=== PATIENT | female | born 1955 | race Caucasian/White ===

== ENCOUNTER 2020-11-17 09:35 | Day surgery (SDC) | payer BC ==
[2020-11-16 11:34] VITALS: BMI 20.5
[~2020-11-17 09:35] MED LIST: LACTATED RINGERS 1,000 ML IV SCH; LIDOCAINE 1% (10MG/ML) FOR IV START INTRADERMA PRN
[2020-11-17 11:42] VITALS: TEMP 98.3
[2020-11-17] MEDS ORDERED: PROPOFOL 10 MG/ML 20 ML VIAL IV ONE (12:19)
--- NOTE | 2020-11-17 12:39 | P.PCN ---
Date of Procedure: 11/17/20 Procedure(s) Performed: BRIEF HISTORY: Patient is a 65-year-old pleasant white female scheduled for an elective colonoscopy as a part of evaluation of recent episode of acute infectious colitis in August 2020 for which she was treated with antibiotics. Since then she is been having intermittent constipation and has been taking MiraLAX daily. PROCEDURE PERFORMED: Colonoscopy with biopsy. PREOPERATIVE DIAGNOSIS: Lower abdominal pain and change in bowel habits. IV sedation per Anesthesia. PROCEDURE: After informed consent was obtained, the patient, was brought into the endoscopy unit. IV sedation was administered by Anesthesia under continuous monitoring. Digital rectal examination was normal. Initially the Olympus CF-160 flexible video colonoscope was then inserted in the rectum, gradually advanced into the cecum without any difficulty. Careful examination was performed as the scope was gradually being withdrawn. Ileocecal valve and the appendiceal orifice were visualized and appeared normal. Prep was excellent. Mucosa of the cecum, ascending colon, transverse colon, descending colon, sigmoid colon, appeared normal. There was evidence of active colitis involving the rectosigmoid colon at 70 from 18-20 cm from the anal verge with mucosal erythema and friability and biopsies were done from this area. The rectum appeared normal. Retroflexion was performed in the rectum and no lesions were seen. The patient tolerated the procedure well. IMPRESSION: Mild patchy colitis noted in the rectosigmoid colon extending from 18-20 cm from the anal verge with mucosal erythema and friability status post multiple biopsies Rest of the colon appeared normal RECOMMENDATIONS: Findings of this examination were discussed with the patient as well as a family. She was advised to follow with the biopsy results. She will continue with MiraLAX daily. repeat colonoscopy in 10 years.
[2020-11-17 12:51] VITALS: RESP 16
[2020-11-17 13:03] VITALS: BP 107/66; PULSE 64
== END 2020-11-17 13:15 | disposition home or self-care (01) ==
LOC: ORWHC2ENDO 09:35
PROVIDERS: ATTEND Internal Medicine Gastroenterology
DX: K51.30 Ulcerative (chronic) rectosigmoiditis without complications (principal); K59.00 Constipation, unspecified; E78.5 Hyperlipidemia, unspecified; K21.9 Gastro-esophageal reflux disease without esophagitis; Z79.899 Other long term (current) drug therapy
CPT/HCPCS: 88305; 45380; J2704

== ENCOUNTER 2022-04-04 07:56 | Observation (INO) | payer BC, MEDICARE ==
[2022-04-04 08:24] LABS: Basophils % (A) 1 %; Eosinophils # (A) 0.3 k/uL (0-0.7); Eosinophils % (A) 5 %; HCT 41.3 % (34.0-46.0); HGB 13.9 gm/dL (11.4-16.0); Lymphocytes # (A) 1.2 k/uL (1.0-4.8); Lymphocytes % (A) 22 %; MCH 31.5 pg (25.0-35.0); MCHC 33.6 g/dL (31.0-37.0); MCV 93.9 fL (80.0-100.0); Monocytes # (A) 0.4 k/uL (0-1.0); Monocytes % (A) 6 %; Neutrophils # (A) 3.6 k/uL (1.3-7.7); Neutrophils % (A) 64 %; Platelet Count 231 k/uL (150-450); RDW 14.3 % (11.5-15.5); WBC 5.6 k/uL (3.8-10.6)
--- NOTE | 2022-04-04 08:38 | XR ---
EXAMINATION TYPE: XR chest 2V DATE OF EXAM: 04/04/2022 COMPARISON: NONE HISTORY: Chest pain. TECHNIQUE: Frontal and lateral views of the chest are obtained. FINDINGS: There is no focal air space opacity, pleural effusion, or pneumothorax seen. The cardiac silhouette size is within normal limits. The osseous structures are intact. Overlying bra strap and EKG leads are seen. IMPRESSION: No acute cardiopulmonary process.
[2022-04-04 08:40] LABS: Calcium 9.1 mg/dL (8.4-10.2); Total Bilirubin 1.4 mg/dL (0.2-1.3)
--- NOTE | 2022-04-04 08:43 | ED ---
Chest Pain HPI - General Chief Complaint: Chest Pain Stated Complaint: chest pain Time Seen by Provider: 04/04/22 08:01 Source: patient, EMS, RN notes reviewed Mode of arrival: EMS Limitations: no limitations - History of Present Illness Initial Comments: is a 66-year-old female presents emergency department to complaint of chest pain. Patient states started around 1 AM. Patient states that it's centralized pain has progressed and radiates sharp to her back. Patient states that she has a history of hyperlipidemia denies any prior cardiac disease states that she's never had a cardiac workup. Patient states that she hasn't call cogent few days ago. Patient states resolved. She denies any recent traveling no leg pain or leg swelling no history DVT or PE. Patient was given aspirin, nitro by EMS she does have minimal improvement with nitro. - Related Data Home Medications Medication Instructions Recorded Confirmed Atorvastatin [Lipitor] 40 mg PO HS 11/16/20 11/17/20 Calcium Carbonate/Vitamin D3 1 each PO BID 11/16/20 11/17/20 [Caltrate 600 Plus D3 20 Mcg (800 Iu)] Celecoxib [CeleBREX] 200 mg PO DAILY PRN 11/16/20 11/16/20 Cholecalciferol [Vitamin D3 (25 50 mcg PO DAILY 11/16/20 11/17/20 Mcg = 1000 Iu)] Allergies Allergy/AdvReac Type Severity Reaction Status Date / Time No Known Allergies Allergy Verified 04/04/22 08:05 Review of Systems ROS Statement: Those systems with pertinent positive or pertinent negative responses have been documented in the HPI. ROS Other: All systems not noted in ROS Statement are negative. EKG Findings - EKG Comments: EKG Findings:: EKG interpreted by me sinus bradycardia rate of 53 DC 179/77 QT/QTC 486/468 - EKG Results: EKG: interpreted by PIERCED Past Medical History Past Medical History: Hyperlipidemia Additional Past Medical History / Comment(s): RECENT INPT AT [facility] FOR "INTRA-ABDOMINAL INFECTION" History of Any Multi-Drug Resistant Organisms: None Reported Past Surgical History: Back Surgery, Hysterectomy Additional Past Surgical History / Comment(s): SINUS SX. COLONOSCOPY/EGD Past Anesthesia/Blood Transfusion Reactions: Postoperative Nausea & Vomiting (PONV) Past Psychological History: No Psychological Hx Reported Smoking Status: Never smoker - Past Family History Father Family Medical History: Cancer General Exam Limitations: no limitations General appearance: alert, in no apparent distress Head exam: Present: atraumatic, normocephalic, normal inspection Eye exam: Present: normal appearance, PERRL, EOMI. Absent: scleral icterus, conjunctival injection, periorbital swelling ENT exam: Present: normal exam, normal oropharynx, mucous membranes moist Neck exam: Present: normal inspection, full ROM. Absent: tenderness, meningismus, lymphadenopathy Respiratory exam: Present: normal lung sounds bilaterally. Absent: respiratory distress, wheezes, rales, rhonchi, stridor Cardiovascular Exam: Present: regular rate, normal rhythm, normal heart sounds. Absent: systolic murmur, diastolic murmur, rubs, gallop, clicks GI/Abdominal exam: Present: soft, normal bowel sounds. Absent: distended, tenderness, guarding, rebound, rigid Neurological exam: Present: alert Skin exam: Present: warm, dry, intact, normal color. Absent: rash Course Vital Signs 04/04/22 08:01 Temperature 97.2 F L Pulse Rate 50 L Respiratory 18 Rate Blood Pressure 138/72 O2 Sat by Pulse 98 Oximetry Chest Pain MDM - MDM Was pt. sent in by a medical professional or institution? @ -no Did you speak to anyone other than the patient for history? @ -EMS prehospital care, vitals, information, meds that were provided Did you review nursing and triage notes? @ -agree and reviewed Were old charts reviewed? @ -no Differential Diagnosis? @ -Chest pain, pneumonia, PE,, anxiety, this this is not meant to be all- inclusive EKG interpreted by me (3pts min.)? @ -See above X-rays interpreted by me (1pt min.)? @ -Chest x-ray interpreted by me no acute process. CT interpreted by me (1pt min.)? @ -None U/S interpreted by me (1pt. min.)? @ -none What testing was considered but not performed? (CT, X-rays, U/S, labs)? Why? @ CT PE study to d-dimer was negative. What meds were considered but not given? Why? @ -morphine patient declined Did you discuss the management of the patient with other professionals? @ -Hospitalist Did you reconcile home meds? @ -yes Was smoking cessation discussed for >3mins.? @ -no Was critical care preformed (if so, how long)? @ -no Were there social determinants of health that impacted care today? How? (Homelessness, low income, unemployed, alcoholism, drug addiction, transportation, low edu. Level, literacy, decrease access to med. care, penitentiary, rehab)? @ -no Was there de-escalation of care discussed even if they declined? (Discuss DNR or withdrawal of care, Hospice)? @ -no What co-morbidities impacted this encounter? (DM, HTN, Smoking, COPD, CAD, Cancer, CVA, Hep., AIDS, mental health diagnosis, sleep apnea, morbid obesity)? @ -Hyperlipidemia Was patient admitted / discharged? @ -admitted Undiagnosed new problem with uncertain prognosis? @ -none Drug Therapy requiring intensive monitoring for toxicity (Heparin, Nitro, Insulin, Cardizem)? @ -no Were any procedures done? @ -no Diagnosis/symptom? @ -Chest pain Acute, or Chronic, or Acute on Chronic? @ -acute Uncomplicated (without systemic symptoms) or Complicated (systemic symptoms)? @ -uncomplicated Side effects of treatment? @ -none Exacerbation, Progression, or Severe Exacerbation] @ -no Poses a threat to life or bodily function? @ -no Disposition Clinical Impression: Chest pain Disposition: ADMITTED IP TO THIS [facility] Condition: Fair Referrals: Letha Rogers DO [Primary Care Provider] - 1-2 days Time of Disposition: 09:20
[2022-04-04 08:47] LABS: Partial Thromboplastin Time 26.8 sec (22.0-30.0); Prothrombin Time 10.5 sec (9.0-12.0)
[2022-04-04 08:52] LABS: Albumin 4.1 g/dL (3.5-5.0); Magnesium 2.1 mg/dL (1.6-2.3); Potassium 4.6 mmol/L (3.5-5.1); Total Protein 6.5 g/dL (6.3-8.2)
[2022-04-04] MEDS ORDERED: KETOROLAC 15 MG/ML 1 ML VIAL IVP STA (09:11)
[2022-04-04] MEDS ORDERED: NITROGLYCERIN SL TABS 0.4 MG TAB SUBLINGUAL PRN (09:24)
[2022-04-04] MEDS ORDERED: MAG HYDROX/AL HYDROX/SIMETH 30 ML, HYOSCYAMINE ELIXIR 10 ML, LIDOCAINE VISCOUS 2% 10 ML PO ONE ×3 (09:32)
--- NOTE | 2022-04-04 11:45 | P.CRDCN ---
History of Present Illness Consult date: 04/04/22 History of present illness: HISTORY OF PRESENT ILLNESS: This is a 66-year-old female with a past medical history significant for depression and hyperlipidemia. Patient does not follow a nib inspector. We have been asked to see the patient in consultation for chest pain. Patient examined at the bedside. Patient states a few days ago she began having pain on both sides of her abdomen/chest; more laterally. She denied any chest pain at that time. She states around 0100 this morning she began having chest pain. She states the pain was in the middle of her chest. She reports radiation in between her shoulder blades, more on the right side. She reports some right upper quadrant abdomen pain with palpation. She also states she was nauseous this morning and had a few episodes of vomiting. She reports feeling sweating and having mild SOB. She was given aspirin and nitro but she states she did not have improvement in her chest pain. She continues to report a squeezing sensation in the middle of her chest and rates it 6/10. She reports a weight loss of 20 lbs over the past 6 months and reports having no appetite. She reports having a fever a couple days ago of 100.8. She states she has not been around anyone who has been sick. * EKG reveals sinus bradycardia with no signs of acute ischemia * Chest xray negative for acute process * Laboratory data: WBC 5.6. Hemoglobin 13.9. Platelet count 231. D-dimer 0.36. Sodium 140. Potassium 4.6. BUN 21. Creatinine 0.81. Troponin negative 1. * Current home cardiac medications include Lipitor 40 mg at night * No previous echocardiogram available for review * Cardiac catheterization history: Patient denies REVIEW OF SYSTEMS: At the time of my exam: CONSTITUTIONAL: Denies fever or chills. HEENT: Denies blurred vision, vision changes, or eye pain. Denies hemoptysis CARDIOVASCULAR: Denies chest pain. Denies orthopnea. Denies PND. Denies palpitations RESPIRATORY: Denies shortness of breath. GASTROINTESTINAL: Denies abdominal pain. Denies nausea or vomiting. HEMATOLOGIC: Denies bleeding disorders. GENITOURINARY: Denies any blood in urine. SKIN: Denies pruitis. Denies rash. PHYSICAL EXAM: VITAL SIGNS: Reviewed. GENERAL: Well-developed in no acute distress. HEENT: Head is normocephalic. Pupils are equal, round. Sclerae anicteric. Mucous membranes of the mouth are moist. Neck supple. No JVD or thyromegaly LUNGS: Respirations even and unlabored. Lungs essentially clear to auscultation bilaterally. HEART: Regular rate and rhythm. S1 and S2 heard. ABDOMEN: Soft. Nondistended. Tenderness with palpation of right upper quadrant. EXTREMITIES: Normal range of motion. No clubbing or cyanosis. Peripheral pulses intact. No lower extremity edema NEUROLOGIC: Awake and alert. Oriented x 3. ASSESSMENT: Chest pain Right upper quadrant pain with right shoulder discomfort along with elevated bilirubin, r/o gallbladder etiology Hyperlipidemia Depression PLAN: Continue to trend troponins Obtain 2D echo to assess cardiac structure and function Recommend US gallbladder Possible stress test tomorrow pending results of troponins, echo, and US gallbladder. NPO at midnight. Further recommendations pending patient course Nurse practitioner note has been reviewed by physician. Signing provider agrees with the documented findings, assessment, and plan of care. Past Medical History Past Medical History: Hyperlipidemia Additional Past Medical History / Comment(s): RECENT INPT AT [facility] FOR "INTRA-ABDOMINAL INFECTION" History of Any Multi-Drug Resistant Organisms: None Reported Past Surgical History: Back Surgery, Hysterectomy Additional Past Surgical History / Comment(s): SINUS SX. COLONOSCOPY/EGD Past Anesthesia/Blood Transfusion Reactions: Postoperative Nausea & Vomiting (PONV) Past Psychological History: No Psychological Hx Reported Smoking Status: Never smoker - Past Family History Father Family Medical History: Cancer Medications and Allergies Home Medications Medication Instructions Recorded Confirmed Type Atorvastatin [Lipitor] 40 mg PO HS 11/16/20 04/04/22 History Calcium Carbonate/Vitamin D3 1 tab PO BID 11/16/20 04/04/22 History [Caltrate 600 Plus D3 20 Mcg (800 Iu)] Celecoxib [CeleBREX] 200 mg PO DAILY 11/16/20 04/04/22 History Cholecalciferol [Vitamin D3 (25 50 mcg PO DAILY 11/16/20 04/04/22 History Mcg = 1000 Iu)] Sertraline [Zoloft] 50 mg PO DAILY 04/04/22 04/04/22 History Zolpidem Tartrate [Ambien] 10 mg PO HS 04/04/22 04/04/22 History Allergies Allergy/AdvReac Type Severity Reaction Status Date / Time No Known Allergies Allergy Verified 04/04/22 10:04 Physical Exam Vitals: Vital Signs Temp Pulse Resp BP Pulse Ox 04/04/22 08:01 97.2 F L 50 L 18 138/72 98 Intake and Output 04/03/22 04/04/22 04/04/22 22:59 06:59 14:59 Other: Weight 52.163 kg Results 04/04/22 08:13 04/04/22 08:13 Cardiac Enzymes 04/04/22 04/04/22 Range/Units 08:13 08:13 AST 41 H (14-36) U/L Troponin I <0.012 (0.000-0.034) ng/mL Coagulation 04/04/22 Range/Units 08:13 PT 10.5 (9.0-12.0) sec APTT 26.8 (22.0-30.0) sec CBC 04/04/22 Range/Units 08:13 WBC 5.6 (3.8-10.6) k/uL RBC 4.40 (3.80-5.40) m/uL Hgb 13.9 (11.4-16.0) gm/dL Hct 41.3 (34.0-46.0) % Plt Count 231 (150-450) k/uL Comprehensive Metabolic Panel 04/04/22 Range/Units 08:13 Sodium 140 (137-145) mmol/L Potassium 4.6 (3.5-5.1) mmol/L Chloride 110 H (98-107) mmol/L Carbon Dioxide 24 (22-30) mmol/L BUN 21 H (7-17) mg/dL Creatinine 0.81 (0.52-1.04) mg/dL Glucose 110 H (74-99) mg/dL Calcium 9.1 (8.4-10.2) mg/dL AST 41 H (14-36) U/L ALT 19 (4-34) U/L Alkaline Phosphatase 108 (38-126) U/L Total Protein 6.5 (6.3-8.2) g/dL Albumin 4.1 (3.5-5.0) g/dL Current Medications Generic Name Dose Route Start Last Admin Trade Name Freq PRN Reason Stop Dose Admin Aspirin 325 mg 04/05/22 09:00 Aspirin 325 Mg Tab PO DAILY ADELIA Atorvastatin Calcium 40 mg 04/04/22 21:00 Atorvastatin 40 Mg Tab PO HS ADELIA Nitroglycerin 0.4 mg 04/04/22 09:24 Nitroglycerin Sl Tabs 0.4 Mg Tab SUBLINGUAL Q5M PRN Chest Pain Intake and Output 04/03/22 04/04/22 04/04/22 22:59 06:59 14:59 Other: Weight 52.163 kg Patient Weight 04/05/22 06:59 Weight 52.163 kg 04/04/22 08:13 04/04/22 08:13
--- NOTE | 2022-04-04 12:45 | US ---
EXAMINATION TYPE: US gallbladder DATE OF EXAM: 04/04/2022 COMPARISON: NONE CLINICAL HISTORY: r/o acute cholecystitis. TECHNIQUE: Multiple sonographic images of the right upper quadrant are obtained. FINDINGS: EXAM MEASUREMENTS: Liver Length: 0.1 cm Gallbladder Wall: 0.2 cm CBD: 0.7 cm Right Kidney: 9.0 x 4.9 x 4.0 cm WOOL HAT FLANGER NOTES: Severe overlying bowel gas, technically difficult limited study. Pancreas: Partially obscured by bowel gas, portions visualized wnl Liver: wnl, limited visualization Gallbladder: neck shows probable stone difficult to visualize Evidence for sonographic Lazaro's sign: Not reported by order processing clerk. CBD: dilated Right Kidney: wnl as seen, limited visualization IMPRESSION: Cholelithiasis without evidence for acute cholecystitis.
--- NOTE | 2022-04-04 19:44 | P.HPIM ---
History of Present Illness H&P Date: 04/04/22 History of Presenting Illness: Patient is a very pleasant 66-year-old female with a past medical history of hyperlipidemia. She presented to the emergency department with a chief complaint of chest pain. Patient described this pain as a tightness to midsternal chest radiating into her back between her shoulder blades. Patient reports her pain began around 1:00 in the morning and was accompanied by severe nausea followed by vomiting and diaphoresis. She denies having any recent fevers or chills and denies feeling any weakness, lightheadedness, palpitations, shortness of breath, or experiencing any numbness/tingling/weakness in her extremities. She underwent full evaluation in the emergency department. Upon arrival to our facility vital signs were stable with blood pressure 138/72, heart rate 50, respiratory rate 18, temp 97.2F, and SpO2 of 98% on room air. Patient denies history of bradycardia in the past. EKG was completed revealing sinus bradycardia at 53 bpm with T-wave inversion in aVL, V1, and V2. Chest x- ray was completed and negative for acute cardiopulmonary process. CBC unremarkable. Coagulation profile including d-dimer also unremarkable with d- dimer of 0.36. CMP revealing hyperchloremia with chloride of 110, prerenal azotemia with BUN of 21, and slightly elevated total bili of 1.4 and AST of 41. Troponin was negative at less than 0.012. Discussed diagnostic testing and results along with patient's physical exam findings with the ED physician and patient was accepted for admission under our services with consultation to cardiology. Review of systems: Pertinent positives and negatives as discussed in HPI, a complete review of s ystems was performed and all other systems are negative. Physical exam: Vital signs reviewed and stable. General: Nontoxic, no distress and appears stated age. Derm: Skin warm and dry, normal coloration for ethnicity. Head: Atraumatic, normocephalic and symmetric. Eyes: EOMs intact, no lid lag, and anicteric sclera Mouth: no lip lesions, mucus membranes moist Cardiovascular: regular rate and rhythm with normal S1S2, no murmur, positive posterior tibial pulses bilaterally, and cap refill < 2 seconds. Lungs: Respirations even, regular, and unlabored on room air. Lungs CTA bilaterally, no rhonchi, no rales, no wheezing, and no accessory muscle usage. Abdominal: soft, nontender to palpation, no guarding, no appreciable organomegaly Ext: ROM intact. No gross muscle atrophy, no edema, no contractures Neuro: Speech clear, face symmetrical and CN II-XII grossly intact with no noted focal neuro deficits Psych: Alert and oriented to person, place, time, and situation. Appropriate and pleasant affect. Assessment and Plan of Care: Chest pain, rule out acute coronary event Bradycardia Hyperlipidemia Slightly elevated liver enzymes with total bili of 1.4 and AST of 41 -Cardiology consult, appreciate further recommendations -Telemetry monitoring -Trend troponins -Cardiac diet, NPO at midnight -Aspirin and atorvastatin. We will hold off on starting metoprolol as patient bradycardic. -Lipid profile with a.m. labs. -Echocardiogram -Secondary to slightly elevated liver enzymes, GI cocktail to be administered 1 dose and order placed for a gallbladder ultrasound at this time. The patient is admitted with an anticipated less than 2 midnight stay for evaluation of chest pain CODE STATUS: Full code DVT prophylaxis: Heparin Discussed with: Patient and RN Anticipated discharge date: Tomorrow morning Anticipated discharge place: Home A total of 43 minutes was spent on the care of this complex patient more than 50% of the time was spent in counseling and care coordination. I reviewed the documentation as provided by the JUNAID above, who is the original author of this note. I agree with the documented assessment and plan, with the following changes: none Past Medical History Past Medical History: Hyperlipidemia Additional Past Medical History / Comment(s): RECENT INPT AT [facility] FOR "INTRA-ABDOMINAL INFECTION" History of Any Multi-Drug Resistant Organisms: None Reported Past Surgical History: Back Surgery, Hysterectomy Additional Past Surgical History / Comment(s): SINUS SX. COLONOSCOPY/EGD Past Anesthesia/Blood Transfusion Reactions: Postoperative Nausea & Vomiting (PONV) Past Psychological History: No Psychological Hx Reported Smoking Status: Never smoker - Past Family History Father Family Medical History: Cancer Medications and Allergies Home Medications Medication Instructions Recorded Confirmed Type Atorvastatin [Lipitor] 40 mg PO HS 11/16/20 04/04/22 History Calcium Carbonate/Vitamin D3 1 tab PO BID 11/16/20 04/04/22 History [Caltrate 600 Plus D3 20 Mcg (800 Iu)] Celecoxib [CeleBREX] 200 mg PO DAILY 11/16/20 04/04/22 History Cholecalciferol [Vitamin D3 (25 50 mcg PO DAILY 11/16/20 04/04/22 History Mcg = 1000 Iu)] Sertraline [Zoloft] 50 mg PO DAILY 04/04/22 04/04/22 History Zolpidem Tartrate [Ambien] 10 mg PO HS 04/04/22 04/04/22 History Allergies Allergy/AdvReac Type Severity Reaction Status Date / Time No Known Allergies Allergy Verified 04/04/22 10:04 Physical Exam Vitals: Vital Signs Temp Pulse Resp BP Pulse Ox 04/04/22 08:01 97.2 F L 50 L 18 138/72 98 Intake and Output 04/03/22 04/04/22 04/04/22 22:59 06:59 14:59 Other: Weight 52.163 kg Results CBC & Chem 7: 04/05/22 05:22 04/05/22 05:22 Labs: Abnormal Lab Results - Last 24 Hours (Table) 04/04/22 Range/Units 08:13 Chloride 110 H (98-107) mmol/L BUN 21 H (7-17) mg/dL Glucose 110 H (74-99) mg/dL Total Bilirubin 1.4 H (0.2-1.3) mg/dL AST 41 H (14-36) U/L
[2022-04-04] MEDS: HEPARIN SODIUM,PORCINE/PF 5,000 UNIT/0.5 ML SYRINGE SQ SCH (20:47)
[2022-04-04] MEDS ORDERED: ZOLPIDEM 5 MG TAB PO SCH (21:00)
[2022-04-04] MEDS ORDERED: ATORVASTATIN 40 MG TAB PO SCH (21:00)
[2022-04-05] MEDS: HEPARIN SODIUM,PORCINE/PF 5,000 UNIT/0.5 ML SYRINGE SQ SCH (04:19)
[2022-04-05 08:36] LABS: HCT 38.5 % (37.2-46.3); HGB 12.7 g/dL (12.0-15.0); MCH 30.8 pg (27.0-32.0); MCV 93.4 fL (80.0-97.0); Mean Platelet Volume 10.1 fL (9.5-12.2); NRBC Per 100 WBC 0 /100 WBCS (0.0-0.0); Platelet Count 205 X 10*3/uL (140-440); RBC 4.12 X 10*6/uL (4.10-5.20); RDW 14.6 % (11.5-14.5); WBC 5.33 X 10*3/uL (4.50-10.00)
[2022-04-05 08:51] LABS: ALT 16 U/L (8-44); AST 24 U/L (13-35); African American GFR (CKD) 90.3 (60.0-200.0); Albumin 3.9 g/dL (3.8-4.9); Alkaline Phosphatase 73 U/L (41-126); BUN/Creat Ratio 22.75 Ratio (12.00-20.00); Blood Urea Nitrogen 18.2 mg/dL (9.0-27.0); Calcium 8.6 mg/dL (8.7-10.3); Carbon Dioxide 26.7 mmol/L (20.0-27.5); Chloride 107 mmol/L (96-109); Chol/HDL Ratio 1.93 Ratio; Globulin 1.5 g/dL (1.6-3.3); Glucose 95 mg/dL (70-110); LDL Cholesterol,Calculated 49.1 mg/dL (0.0-131.0); Non-African American GFR(CKD) 77.9 (60.0-200.0); Potassium 4.1 mmol/L (3.5-5.5); Sodium 140 mmol/L (135-145); Total Protein 5.4 g/dL (6.2-8.2); VLDL Calculation 15.98 mg/dL (5.00-40.00)
[2022-04-05 08:57] VITALS: BP 116/65; PULSE 57; RESP 16; TEMP 98.2
[2022-04-05] MEDS ORDERED: ASPIRIN 325 MG TAB PO SCH (09:00)
[2022-04-05] MEDS ORDERED: ASPIRIN 81 MG PO SCH (09:00)
[2022-04-05] MEDS ORDERED: SERTRALINE 50 MG TAB PO SCH (09:00)
--- NOTE | 2022-04-05 09:49 | CA ---
Transthoracic Echo Report Name: Ashley Pope Age: 66 Gender: F : 1955 Exam Date: 04/04/2022 14:29 Exam Location: [facility] Ht (in): 64 Wt (lb): 115 Ordering Physician: Rk Van Attending/Referring Phys: [id number], Rehan Presser Cotton Ginning Alaina Pena RDCS Procedure CPT: Indications: Chest Pain Cardiac Hx: Technical Quality: Fair Contrast 1: Total Dose (mL): Contrast 2: Total Dose (mL): MEASUREMENTS (Male / Female) Normal Values 2D ECHO LV Diastolic Diameter PLAX 4.3 cm 4.2 - 5.9 / 3.9 - 5.3 cm LV Systolic Diameter PLAX 2.8 cm IVS Diastolic Thickness 0.8 cm 0.6 - 1.0 / 0.6 - 0.9 cm LVPW Diastolic Thickness 0.9 cm 0.6 - 1.0 / 0.6 - 0.9 cm LV Relative Wall Thickness 0.4 RV Internal Dim ED PLAX 3.2 cm M-MODE Aortic Root Diameter MM 3.0 cm LA Systolic Diameter MM 3.6 cm LA Ao Ratio MM 1.2 AV Cusp Separation MM 1.7 cm DOPPLER AV Peak Velocity 98.7 cm/s AV Peak Gradient 3.9 mmHg LVOT Peak Velocity 75.2 cm/s LVOT Peak Gradient 2.3 mmHg MV Area PHT 2.3 cm??? Mitral E Point Velocity 58.9 cm/s Mitral A Point Velocity 97.9 cm/s Mitral E to A Ratio 0.6 MV Deceleration Time 332.7 ms TR Peak Velocity 231.5 cm/s TR Peak Gradient 21.4 mmHg Right Ventricular Systolic Press 25.6 mmHg FINDINGS Left Ventricle Normal Left ventricular size, wall thickness, systolic function with no obvious regional wall motion abnormalities. Normal Left ventricular diastolic filling pattern. Left ventricular ejection fraction is estimated at 55-60 %. Right Ventricle Normal right ventricular size and function. Right ventricular systolic pressure within normal limits. Right Atrium Normal right atrial size. Left Atrium Normal left atrial size. Mitral Valve Structurally normal mitral valve. Trace mitral regurgitation. Aortic Valve Trileaflet aortic valve. No aortic valve stenosis or regurgitation. Tricuspid Valve Structurally normal tricuspid valve. Mild tricuspid regurgitation. Pulmonic Valve Trace pulmonic regurgitation. Pericardium No pericardial effusion. Aorta Normal size aortic root and proximal ascending aorta. CONCLUSIONS Left ventricular ejection fraction 55-60% Normal left ventricular thickness Trace mitral regurgitation Mild tricuspid regurgitation No pericardial effusion Previewed by: Dr. Fernando Dowling DO (Electronically Signed) Final Date: 05 April 2022 09:49
--- NOTE | 2022-04-05 09:58 | P.PN ---
Subjective Progress Note Date: 04/05/22 HISTORY OF PRESENT ILLNESS: This is a 66-year-old female with a past medical history significant for depression and hyperlipidemia. 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 We have been asked to see the patient in consultation for chest pain. Patient examined at the bedside. Patient states a few days ago she began having pain on both sides of her abdomen/chest; more laterally. She denied any chest pain at that time. She states around 0100 this morning she began having chest pain. She states the pain was in the middle of her chest. She reports radiation in between her shoulder blades, more on the right side. She reports some right upper quadrant abdomen pain with palpation. She also states she was nauseous this morning and had a few episodes of vomiting. She reports feeling sweating and having mild SOB. She was given aspirin and nitro but she states she did not have improvement in her chest pain. She continues to report a squeezing sensation in the middle of her chest and rates it 6/10. She reports a weight loss of 20 lbs over the past 6 months and reports having no appetite. She reports having a fever a couple days ago of 100.8. She states she has not been around anyone who has been sick. * EKG reveals sinus bradycardia with no signs of acute ischemia * Chest xray negative for acute process * Laboratory data: WBC 5.6. Hemoglobin 13.9. Platelet count 231. D-dimer 0.36. Sodium 140. Potassium 4.6. BUN 21. Creatinine 0.81. Troponin negative 1. * Current home cardiac medications include Lipitor 40 mg at night * No previous echocardiogram available for review * Cardiac catheterization history: Patient denies 04/05/2022 Patient examined this morning at the bedside. Patient denies any further episodes of chest pain or pressure. She reports epigastric tenderness. She reports nausea but no vomiting. Tachycardia gram completed revealing ejection fraction 55-60%, trace MR, and mild TR. Gallbladder US reveals cholelithiasis with dilated common bile duct but no evidence of acute cholecystitis. PHYSICAL EXAM: VITAL SIGNS: Reviewed. GENERAL: Well-developed in no acute distress. HEENT: Head is normocephalic. Pupils are equal, round. Sclerae anicteric. Mucous membranes of the mouth are moist. Neck supple. No JVD or thyromegaly LUNGS: Respirations even and unlabored. Lungs essentially clear to auscultation bilaterally. HEART: Regular rate and rhythm. S1 and S2 heard. ABDOMEN: Soft. Nondistended. Tenderness with palpation of right upper quadrant. EXTREMITIES: Normal range of motion. No clubbing or cyanosis. Peripheral pulses intact. No lower extremity edema NEUROLOGIC: Awake and alert. Oriented x 3. ASSESSMENT: Chest pain, troponins negative 3 Right upper quadrant pain with right shoulder discomfort along with elevated bilirubin, r/o gallbladder etiology Hyperlipidemia Depression PLAN: 2-D obtained and reviewed Acute coronary event has been ruled out. Patient to undergo stress echocardiogram today. If negative she may be discharged home from a cardiac standpoint. Nurse practitioner note has been reviewed by physician. Signing provider agrees with the documented findings, assessment, and plan of care. Objective - Vital Signs Vital signs: Vital Signs Temp 98.2 F 04/05/22 07:00 Pulse 57 L 04/05/22 08:00 Resp 16 04/05/22 08:00 BP 116/65 04/05/22 07:00 Pulse Ox 99 04/05/22 07:00 FiO2 Intake & Output 04/04/22 04/05/22 04/05/22 18:59 06:59 18:59 Weight 52.163 kg Other: Voiding Method Toilet Toilet # Voids 1 1 - Labs CBC & Chem 7: 04/05/22 05:22 04/05/22 05:22 Labs: Abnormal Lab Results - Last 24 Hours (Table) 04/05/22 04/05/22 Range/Units 05:22 05:22 RDW 14.6 H (11.5-14.5) % Anion Gap 6.30 L (10.00-18.00) mmol/L BUN/Creatinine Ratio 22.75 H (12.00-20.00) Ratio Calcium 8.6 L (8.7-10.3) mg/dL Total Protein 5.4 L (6.2-8.2) g/dL Globulin 1.5 L (1.6-3.3) g/dL HDL Cholesterol 69.90 H (40.00-60.00) mg/dL
--- NOTE | 2022-04-05 10:53 | CA ---
Stress Echo Report Ashley Pope Age: 66 Gender: F : 1955 Exam Date: 04/05/2022 09:29 Exam Location: [facility] Ht (in): 64 Wt (lb): 115 Ordering Physician: Lucy Landeros Referring Physician: [id number] Injection [employer] Tooling Technician: Pop Leiva Technologist Procedure CPT: Indication: CP ICD-9 Codes: Rhythm: Patient History: CHEST PAIN, DIFFICULTY IN BREATHING, ELEVATED CHOLESTEROL LEVELS, FAMILY HX OF HEART DISEASE Cardiac Medications: Medications in past 24 hours: Contrast: Stress Results Protocol: Del Total dose(mL): Exercise Duration (min:sec): Max ST Depression (mm): Angina Score: Vaughn Score: METS: 9.7 Resting HR: 70 Resting BP: 125 / 76 Peak HR: 144 Peak BP: 166 / 83 Max Predicted HR: 156 92 % Max Predicted HR Target HR: 133 Double Product: 60909 Stress Summary: BP Response: Reason for Termination: Cardiac Symptoms: NO SYMPTOMS ECG Analysis Resting ECG: Stress ECG: Arrhythmia: Echo Analysis Resting Echo: Peak Echo Analysis: MEASUREMENTS (Male/Female) Normal Values CONCLUSIONS Patient underwent exercise stress echo with a Del protocol treadmill stress test. Patient exercised into Stage 3 for a total of 8 minutes 1 second reaching a total of 9.7 METS. Patient's maximum heart rate was 144 which represented 92 % age- predicted maximum heart rate. Stress EKG portion: At baseline patient's EKG showed normal sinus rhythm, normal axis, no significant ST or T wave abnormalities. At peak exercise, EKG showed no significant change from baseline. Stress echo portion: 2-D echocardiogram was performed in the parasternal long, personal short, apical 2 and apical four-chamber views at rest, peak exercise and in recovery. At baseline, echocardiogram showed left ventricular ejection fraction the 55% without wall motion abnormalities. With peak exercise, echocardiogram shows improvement in left ventricular ejection fraction, increase contractility, decrease in left ventricular end systolic dimension without wall motion abnormalities consistent with a normal response to exercise. Conclusions: 1. Normal EKG and echo response to exercise without evidence of inducible ischemia. 2. Fair exercise capacity. Dr. Fernando Dowling DO (Electronically Signed) Final Date: 05 April 2022 10:52
--- NOTE | 2022-04-05 13:59 | P.DS ---
Providers Date of admission: 04/04/22 09:35 Expected date of discharge: 04/05/22 Attending physician: Lois Abernathy DO Primary care physician: Letha Rogers Hospital Course: Discharge Diagnosis: Chest pain Sinus bradycardia Hyperlipidemia Mild transaminitis Cholelithiasis Hospital Course: Patient seen and examined at bedside.66-year-old female with a past medical history of hyperlipidemia. She presented to the emergency department with a chief complaint of chest pain. Patient described this pain as a tightness to midsternal chest radiating into her back between her shoulder blades. Patient reports her pain began around 1:00 in the morning and was accompanied by severe nausea followed by vomiting and diaphoresis. She denies having any recent fevers or chills and denies feeling any weakness, lightheadedness, palpitations, shortness of breath, or experiencing any numbness/tingling/weakness in her extremities. She underwent full evaluation in the emergency department. Upon arrival to our facility vital signs were stable with blood pressure 138/72, heart rate 50, respiratory rate 18, temp 97.2F, and SpO2 of 98% on room air. Patient denies history of bradycardia in the past. EKG was completed revealing sinus bradycardia at 53 bpm with T-wave inversion in aVL, V1, and V2. Chest x- ray was completed and negative for acute cardiopulmonary process. CBC unremarkable. Coagulation profile including d-dimer also unremarkable with d- dimer of 0.36. CMP revealing hyperchloremia with chloride of 110, prerenal azotemia with BUN of 21, and slightly elevated total bili of 1.4 and AST of 41. Troponin was negative at less than 0.012. Cardiology consulted. Echo showed LV EF 55-60%, trace MR and mild TR. ACS ruled out. Stress echo was negative. Right upper quadrant ultrasound showed cholelithiasis without evidence of acute cholecystitis. Vital signs reviewed and stable. General: nontoxic, no distress, appears at stated age Derm: warm, dry Head: atraumatic, normocephalic, symmetric Eyes: EOMI, no lid lag, anicteric sclera Mouth: no lip lesion, mucus membranes moist Cardiovascular: S1S2 reg, no murmur Lungs: CTA bilateral, no rhonchi, no rales , no accessory muscle use Abdominal: soft, nontender to palpation, no guarding, no appreciable organomegaly Ext: no gross muscle atrophy, no edema, no contractures Neuro: CN II-XI grossly intact, no focal neuro deficits Psych: Alert, oriented, appropriate affect A total of 33 minutes of time were spent preparing this complex discharge summary. Patient was discharged on 04/05/22 at 11:16. Patient Condition at Discharge: Stable Plan - Discharge Summary New Discharge Prescriptions: Continue Celecoxib [CeleBREX] 200 mg PO DAILY Calcium Carbonate/Vitamin D3 [Caltrate 600 Plus D3 20 Mcg (800 Iu)] 1 tab PO BID Sertraline [Zoloft] 50 mg PO DAILY Cholecalciferol [Vitamin D3 (25 Mcg = 1000 Iu)] 50 mcg PO DAILY Atorvastatin [Lipitor] 40 mg PO HS Zolpidem Tartrate [Ambien] 10 mg PO HS Discharge Medication List Atorvastatin [Lipitor] 40 mg PO HS 11/16/20 [History] Calcium Carbonate/Vitamin D3 [Caltrate 600 Plus D3 20 Mcg (800 Iu)] 1 tab PO BID 11/16/20 [History] Celecoxib [CeleBREX] 200 mg PO DAILY 11/16/20 [History] Cholecalciferol [Vitamin D3 (25 Mcg = 1000 Iu)] 50 mcg PO DAILY 11/16/20 [History] Sertraline [Zoloft] 50 mg PO DAILY 04/04/22 [History] Zolpidem Tartrate [Ambien] 10 mg PO HS 04/04/22 [History] Follow up Appointment(s)/Referral(s): Letha Rogers DO [Primary Care Provider] - 1-2 days Patient Instructions/Handouts: Chest Pain (DC), Noncardiac Chest Pain (DC) Activity/Diet/Wound Care/Special Instructions: Please see your PCP in 1-2 days. Discharge Disposition: HOME SELF-CARE
== END 2022-04-05 13:12 | disposition home or self-care (01) ==
LOC: EC 07:56 → 6NMEDSUR 09:35
PROVIDERS: ADMIT Internal Medicine; ATTEND Internal Medicine
DX: R07.9 Chest pain, unspecified (principal); R00.1 Bradycardia, unspecified; K80.20 Calculus of gallbladder without cholecystitis without obstruction; E78.5 Hyperlipidemia, unspecified; R74.01 Elevation of levels of liver transaminase levels; F32.A Depression, unspecified; Z79.899 Other long term (current) drug therapy; Z79.1 Long term (current) use of non-steroidal anti-inflammatories (NSAID)
CPT/HCPCS: 96372; 96374; 99285; 36415; 93005; 93306; 93351; 85379; 80061; 80053 ×2; 83735; 84484; 85025; 85027; 85610; 85730; 71046; 76705; G0378 ×2; J1885; J1644

== ENCOUNTER → 2022-08-02 | Outpatient (CLI) | payer MEDICARE ==
--- NOTE | 2022-08-02 18:43 | BD ---
EXAMINATION TYPE: Axial Bone Density DATE OF EXAM: 08/02/2022 CLINICAL HISTORY: 67 years old Female. ICD-10 CODE: M81.0 AGE RELATED OSTEOPOROSIS Height: 5 ft 4in Weight: 127 FRAX RISK QUESTIONS: Alcohol (3 or more units per day): no Family History (Parent hip fracture): no Glucocorticoids (More than 3mos): no (Ex: prednisone, prednisolone, methylprednisolone, dexamethasone, and hydrocortisone). History of Fracture in Adulthood: yes Secondary Osteoporosis: 1. Type 1 Diabetes: no 2. Hyperthyroidism: no 3. Menopause before 45: no 4. Malnutrition: no 5. Chronic liver disease: no Rheumatoid Arthritis: no Current Tobacco Use: no RISK FACTORS HISTORY OF: Surgery to Spine/Hip(right/left)/Wrist (right/left): lumbar surg x 2 When: 1997 1998 Family History of Osteoporosis: no Active: yes Diet low in dairy products/other sources of calcium: no Postmenopausal woman: yes Take estrogen and/or progesterone medications: no Lost more than 2 inches in height since high school: no Frequent falls: no Poor Health: good Hyperparathyroidism: no Adrenal Insufficiency: no MEDICATIONS: Osteoporosis Medications: yes Which medication: evinity How Long: one year Additional Medications: evinity inj once a month, Atorvastatin, prilosec, celebrex Additional History: EXAM MEASUREMENTS: Bone mineral densitometry was performed using the Yodo1 System. Bone mineral density as measured about the Lumbar spine is: ----- L1-L4(G/cm2): 1.207 T Score Values are as follows: ----- L1: 0.4 ----- L2: 0.4 ----- L3: 0.3 ----- L4: -0.3 ----- L1-L4: 0.2 Z Score Values are as follows: ----- L1: 2.3 ----- L2: 2.2 ----- L3: 2.2 ----- L4: 1.6 ----- L1-L4: 2.1 baseline Bone mineral density about the R hip (g/cm2): 0.665 Bone mineral density about the L hip (g/cm2): 0.654 T Score values are as follows: -----R Neck: -2.7 -----L Neck: -2.8 -----R Total: -2.2 -----L Total: -2.4 Z Score values are as follows: -----R Neck: -1.1 -----L Neck: -1.1 -----R Total: -0.8 -----L Total: -1.1 baseline FRAX%s: The graph provided illustrates a 22.3 % chance for a major osteoporotic fx and a 6.0 % chance for the hips probability for fx in 10 years time. IMPRESSION: Osteoporosis (T Score less than -2.5). There is increased fracture risk and therapy is usually indicated based on age. Re-Screen 1-2 years. NOTE: T-SCORE=SD OF THE YOUNG ADULT MEAN.
== END | disposition home or self-care (01) ==
LOC: RADBDWWP 10:54
PROVIDERS: ATTEND Internal Medicine Endocrinology, Diabetes & Metabolism
DX: M81.0 Age-related osteoporosis without current pathological fracture (principal)
CPT/HCPCS: 77080

== ENCOUNTER → 2024-08-07 | Outpatient (CLI) | payer MEDICARE ==
--- NOTE | 2024-08-07 07:44 | BD ---
EXAMINATION TYPE: Axial Bone Density DATE OF EXAM: 08/07/2024 CLINICAL HISTORY: 69 years old Female. ICD-10 CODE: M81.0 AGE-RELATED OSTEOPOROSIS W/O CURRENT PATHO LO , Additional History: Height: 64" Weight: 137lbs FRAX RISK QUESTIONS: Alcohol (3 or more units per day): No Family History (Parent hip fracture): No Glucocorticoids (More than 3mos): No (Ex: prednisone, prednisolone, methylprednisolone, dexamethasone, and hydrocortisone). History of Fracture in Adulthood: Yes Secondary Osteoporosis: 1. Type 1 Diabetes: No 2. Hyperthyroidism: No 3. Menopause before 45: Yes 4. Malnutrition: No 5. Chronic liver disease: No Rheumatoid Arthritis: No Current Tobacco Use: No RISK FACTORS HISTORY OF: Hip Fracture (Right/Left): No Spine Fracture: No History of Wrist Fracture: No Surgery to Spine/Hip(right/left)/Wrist (right/left): Yes, lumbar laminectomy X2 When: Last sx 1998 MEDICATIONS: Thyroid Medications:No Osteoporosis Medications: Yes Which medication: Reclast Injections How Long: Started last year, 1 injection EXAM MEASUREMENTS: Bone mineral densitometry was performed using the Phrazit System. Bone mineral density as measured about the Lumbar spine is: ----- L1-L4(G/cm2): 1.242 T Score Values are as follows: ----- L1: 0.3 ----- L2: 0.3 ----- L3: 1.3 ----- L4: 0.1 ----- L1-L4: 0.5 Z Score Values are as follows: ----- L1: 2.0 ----- L2: 2.0 ----- L3: 3.0 ----- L4: 1.9 ----- L1-L4: 2.2 Bone mineral density has: increased 4.3% since study of: 08/02/2022 Bone mineral density about the R hip (g/cm2): 0.696 Bone mineral density about the L hip (g/cm2): 0.674 T Score values are as follows: -----R Neck: -3.1 -----L Neck: -2.8 -----R Total: -2.5 -----L Total: -2.6 Z Score values are as follows: -----R Neck: -1.4 -----L Neck: -1.2 -----R Total: -1.1 -----L Total: -1.3 Bone mineral density has: decreased -4.3% since study of: 08/02/2022 FRAX%s: The graph provided illustrates a 27.6% chance for a major osteoporotic fx and a 9.0% chance f or the hips probability for fx in 10 years time. IMPRESSION: Osteoporosis (T Score less than -2.5). There is increased fracture risk and therapy is usually indicated based on age. Re-Screen 1-2 years. NOTE: T-SCORE=SD OF THE YOUNG ADULT MEAN. [facility], , 08/07/2024 7:41 AM
== END | disposition home or self-care (01) ==
LOC: RADBDWWP 07:10
PROVIDERS: ATTEND Internal Medicine Endocrinology, Diabetes & Metabolism
DX: M81.0 Age-related osteoporosis without current pathological fracture (principal); Z78.0 Asymptomatic menopausal state
CPT/HCPCS: 77080